=== PATIENT | female | born 1990 | race Caucasian/White ===

== ENCOUNTER → 2016-08-25 | Outpatient (CLI) | payer OTHER | LOC: MOB LAB 13:50 | PROVIDERS: ATTEND Student in an Organized Health Care Education/Training Program | DX: J02.9 Acute pharyngitis, unspecified (principal) | CPT/HCPCS: 87070 ==

== ENCOUNTER → 2017-02-02 | Outpatient (CLI) | payer OTHER ==
[2017-02-02 14:48] LABS: BASOPHILS # (AUTO) 0.07 10*3/UL; BASOPHILS % (AUTO) 0.9 % (0-1); EOSINOPHILS # (AUTO) 0.11 10*3/UL; EOSINOPHILS % (AUTO) 1.3 % (0-8); HEMATOCRIT 36.2 % (37.0-47.0); HEMOGLOBIN 12.7 g/dL (12.0-16.0); LYMPHOCYTES # (AUTO) 1.98 10*3/uL; MEAN CORPUSCULAR HEMOGLOBIN 31.9 PG (27-31); MEAN CORPUSCULAR HGB CONC 35.1 g/dL (33-37); MEAN PLATELET VOLUME 10.5 FL (7.4-12.2); MONOCYTES # (AUTO) 0.71 10*3/UL (0.3-0.8); MONOCYTES % (AUTO) 8.7 % (5-15); NEUTROPHILS # (AUTO) 5.28 10*3/UL; NEUTROPHILS % (AUTO) 64.7 % (50-80); RED BLOOD COUNT 3.98 10^6/uL (4.20-5.40)
[2017-02-02 14:54] LABS: PLATELET MORPHOLOGY COMMENT NORMAL MORPHOLOGY (NORM); RBC MORPHOLOGY COMMENT NORMAL MORPHOLOGY (NORM); WBC MORPHOLOGY COMMENT NORMAL MORPHOLOGY (NORM)
[2017-02-02 15:36] LABS: HIV ANTIBODY NEGATIVE (N); HIV-1 P24 ANTIGEN NEGATIVE (N)
== END ==
LOC: MOB LAB 13:42
PROVIDERS: ATTEND Student in an Organized Health Care Education/Training Program
DX: Z36 Encounter for antenatal screening of mother (principal)
CPT/HCPCS: 36415; 80081; 86900; 86901; 87088

== ENCOUNTER 2017-08-31 13:35 | Inpatient (IN) ==
[2017-08-31] MEDS ORDERED: NORMAL SALINE 10 ML SYRINGE FLUSH IVP PRN ×2 (13:56→17:38)
[2017-08-31 14:16] LABS: Hematocrit [HCT] 33.5 % (37.0-47.0); Hemoglobin [HGB] 11.4 g/dL (12.0-16.0); MEAN CORPUSCULAR HEMOGLOBIN 30.8 PG (27-31); MEAN CORPUSCULAR VOLUME 90.5 FL (81-99); MEAN PLATELET VOLUME 10.6 FL (7.4-12.2); RED BLOOD COUNT 3.7 10^6/uL (4.20-5.40)
[2017-08-31 14:28] LABS: BLOOD UREA NITROGEN 8 mg/dL (7-22); BUN/CREATININE RATIO 13.33 (6-20); SERUM ALBUMIN 3.7 g/dL (3.5-4.8); Uric Acid 3.7 mg/dl (2.5-6.2)
[2017-08-31] MEDS ORDERED: Lactated Ringers 1,000 ML PRIMARY IV ONE (14:35)
[2017-08-31] MEDS ORDERED: Amoxicill/Clav 875/125mg Tab 1 TAB TAB PO SCH (17:30)
[2017-08-31] MEDS ORDERED: TERBUTALINE SULFATE 1 MG/1 ML SDV SUBCUT PRN (17:38)
[2017-08-31] MEDS ORDERED: BUTORPHANOL TARTRATE 2 MG/1 ML VIAL IVP PRN (17:38)
[2017-08-31] MEDS ORDERED: METHYLERGONOVINE MALEATE 0.2 MG/1 ML VIAL IM PRN (17:38)
[2017-08-31] MEDS ORDERED: Metoclopramide Inj 10 MG/2 ML VIAL IV PRN (17:38)
[2017-08-31] MEDS ORDERED: LIDOCAINE W/ SODIUM BICARB 0.5 ML SYR SUBD PRN (17:38)
[2017-08-31] MEDS ORDERED: ONDANSETRON 4 MG/2 ML VIAL IVP PRN (17:38)
[2017-08-31] MEDS ORDERED: Phenylephrine Inj 50 MCG in Normal Saline Flush 0.5 ML IVP PRN (17:38)
[2017-08-31] MEDS ORDERED: CALCIUM CARBONATE 500 MG (TUMS) CHEWABLE TABLET PO PRN (17:38)
[2017-08-31] MEDS ORDERED: Lidocaine 1% 10 MG/ML - 20 ML VIAL SUBCUT PRN (17:38)
[2017-08-31] MEDS ORDERED: Carboprost Inj 250 MCG/ML AMP IM PRN (17:38)
[2017-08-31] MEDS ORDERED: diphenhydrAMINE 50 MG/1 ML VIAL IVP PRN (17:38)
[2017-08-31] MEDS ORDERED: ePHEDrine Inj 5 MG in Normal Saline Flush 1 ML IVP PRN (17:38)
[2017-08-31] MEDS ORDERED: LIDOCAINE HCL 2 % 10 ML JELLY URO-JECT TOPICAL PRN (17:38)
[2017-08-31] MEDS ORDERED: Naloxone Inj 0.01 MG in Normal Saline Flush 1 ML IVP PRN (17:38)
[2017-08-31] MEDS ORDERED: MISOPROSTOL 200 MCG TABLET RECTAL PRN (17:38)
[2017-08-31] MEDS ORDERED: fentaNYL Inj 100 MCG/2 ML VIAL IV PRN (17:38)
[2017-08-31] MEDS ORDERED: NALOXONE 0.4 MG/1 ML VIAL IVP PRN (17:38)
[2017-08-31] MEDS ORDERED: OXYTOCIN 10 UNIT/1 ML IM PRN (17:38)
[2017-08-31] MEDS ORDERED: Oxytocin 20 Units + LR 20 UNIT/1,000 ML BAG IV SCH (17:38)
[2017-08-31] MEDS ORDERED: CITRIC ACID/SODIUM CITRATE 30 ML CUP PO PRN (17:38)
[2017-08-31] MEDS ORDERED: CefOXitin Inj 2 GM in Sodium Chloride 0.9% 100 ML IV PRN (17:38)
[2017-08-31] MEDS ORDERED: Famotidine Inj 20 MG in Normal Saline Flush 10 ML IVP PRN ×4 (17:38)
--- NOTE | 2017-08-31 17:41 | OB.PROGRES ---
Interval History: 27 yo at 38 0/7 weeks gestation by LMP and 8 week u/s presented to clinic today for a routine visit. She reported 3 days of cough, muscle aches, subjective fever, sinus congestion. She has noted increased BPs at home. In the clinic her BP was 140/80, Influenza negative. She was sent to L&D for further workup. Workup notable for urine pr:cr 1.5, plts, LFTs, h/h, cr otherwise unremarkable. She denies TOSCANO, scotomata, RUQ pain, increased swelling (although has had LE edema for some time now). unremarkable. Labs notable for Rubella nonimmune, GBS negative. She has had a cold off and on x1 month, just completed a course of amoxicillin about a week ago. Received TDaP 06/22/17. Received Flu shot 04/06/17. Quad screen did not show increased risk of trisomy 21, 18 or neural tube defect. Normal anatomy scan, posterior placenta. Growth u/s 08/24/17 (last week) showed EFW 37%ile, normal cord dopplers, posterior placenta grade 3. Gender is a surprise. PANTOMIMIST hx - was not on contraception at conception. No h/o STIs. H/o HPV positive pap 08/17, 08/18 pap negative, HR HPV negative PMH - vericose veins DVT at age 15, provoked, negative coag panel at that time Seasonal allergies SI joint pain Chicken pox as a kid PSH - wisdom teeth extraction FH - T2DM, anemia, CAD, colon cancer Objective - Cervical Exam Cervical Exam: /-3 posterior firm per RJ Hu[facility] [place]: none now but was marian upon arrival up to 3/10 mins Heart Rate: baseline 150, mod dylon, +accels, -decels. (Tachycardic initially upon arrival to L&D but better after IVF) Heart Rate Interpretation Category: Category I - Labs CBC and BMP: 08/31/17 14:11 08/31/17 14:11 Additional Lab Results: 08/31/17 08/31/17 08/31/17 14:11 14:11 14:11 WBC 10.44 Hgb 11.4 L Hct 33.5 L Plt Count 249 Sodium 135 Potassium 3.8 Chloride 103 Carbon Dioxide 20 L BUN 8 Creatinine 0.6 BUN/Creatinine Ratio 13.33 Glucose 95 Uric Acid 3.7 Calcium 9.3 Total Bilirubin 0.4 AST 25 ALT 47 Alkaline Phosphatase 116 Lactate Dehydrogenase 318 Ur Random Creatinine 9.5 U Random Total Protein 15 H - Vital Signs Last Taken Vital Signs: Vital Signs - Last Taken Temperature 97.5 F 08/31/17 13:55 Pulse Rate 105 H 08/31/17 13:55 Respiratory Rate 18 08/31/17 13:55 Blood Pressure 137/82 08/31/17 15:15 Pulse Ox 98 08/31/17 13:55 Assessment and Plan - Patient Problems (1) Preeclampsia Current Visit: Yes Status: Acute Code(s): O14.90 - Unspecified pre-eclampsia , unspecified trimester Qualifiers: Trimester: third trimester Qualified Code(s): O14.93 - Unspecified pre- eclampsia, third trimester (2) Sinusitis Current Visit: Yes Status: Acute Code(s): J32.9 - Chronic sinusitis, unspecified Qualifiers: Sinusitis location: frontal Chronicity: acute Recurrence: recurrent Qualified Code(s): J01.11 - Acute recurrent frontal sinusitis (3) Rubella non-immune status, antepartum Current Visit: Yes Status: Acute Code(s): O99.89 - Other specified diseases and conditions complicating , childbirth and the puerperium; Z28.3 - Underimmunization status Support Text: 27 yo at 38 0/7 weeks gestation by LMP, first tri u/s. Patient with several BPs >140/90 now but not to severe range. Not technically 4 hours apart yet. Proteinuria by a random urine pr:cr 1.5. Labs otherwise reassuring. Long discussion with patient Will plan to start induction once we have 2 BPs >140/90 documented at least 4 hours apart. If she continues to not contract will start with cytotec 25mcg pv. If she is marian will do low dose pitocin. Will start Augmentin 875/125 po bid for sinusitis GBS negative Will likely want an epidural
[2017-08-31 18:02] LABS: BILIRUBIN,URINE NEGATIVE (NEG); CLARITY,URINE CLEAR (CLEAR); COLOR,URINE YELLOW (Y); GLUCOSE, URINE (UA) NEGATIVE (NEG); OCCULT BLOOD,URINE NEGATIVE (NEG); PROTEIN,URINE NEGATIVE (NEG); URINE SAMPLE TYPE CLEAN CATCH URINE; UROBILINOGEN,URINE 0.2 EU/dL (0.2)
[2017-08-31] MEDS: Zolpidem Tab 5 MG TAB PO PRN (21:43)
[2017-08-31] MEDS: Amoxicill/Clav 875/125mg Tab 1 TAB TAB PO SCH (21:43)
[2017-08-31] MEDS: GUAIFENESIN 600 MG TABLET PO PRN (21:44)
[2017-09-01] MEDS: Lactated Ringers-OB Dept 1,000 ML PRIMARY IV SCH ×3 (04:39→22:43)
[2017-09-01 05:44] LABS: Hematocrit [HCT] 32.8 % (37.0-47.0); Hemoglobin [HGB] 11.1 g/dL (12.0-16.0); MEAN CORPUSCULAR HEMOGLOBIN 30.8 PG (27-31); MEAN CORPUSCULAR HGB CONC 33.8 g/dL (33-37); MEAN CORPUSCULAR VOLUME 91.1 FL (81-99); MEAN PLATELET VOLUME 10.9 FL (7.4-12.2); RED BLOOD COUNT 3.6 10^6/uL (4.20-5.40)
[2017-09-01 05:57] LABS: BLOOD UREA NITROGEN 6 mg/dL (7-22); SERUM ALBUMIN 3.4 g/dL (3.5-4.8); Uric Acid 3.8 mg/dl (2.5-6.2)
--- NOTE | 2017-09-01 09:10 | OB.PROGRES ---
Objective - Labs CBC and BMP: 09/01/17 05:17 09/01/17 05:17 - Vital Signs Last Taken Vital Signs: Vital Signs - Last Taken Temperature 97.9 F 09/01/17 04:36 Pulse Rate 101 H 09/01/17 08:00 Respiratory Rate 18 09/01/17 08:00 Blood Pressure 118/81 09/01/17 08:00 Pulse Ox 97 09/01/17 07:00 Assessment and Plan - Patient Problems (1) Preeclampsia Current Visit: Yes Status: Acute Code(s): O14.90 - Unspecified pre-eclampsia , unspecified trimester Qualifiers: Trimester: third trimester Qualified Code(s): O14.93 - Unspecified pre- eclampsia, third trimester (2) Sinusitis Current Visit: Yes Status: Acute Code(s): J32.9 - Chronic sinusitis, unspecified Qualifiers: Sinusitis location: frontal Chronicity: acute Recurrence: recurrent Qualified Code(s): J01.11 - Acute recurrent frontal sinusitis (3) Rubella non-immune status, antepartum Current Visit: Yes Status: Acute Code(s): O99.89 - Other specified diseases and conditions complicating , childbirth and the puerperium; Z28.3 - Underimmunization status
--- NOTE | 2017-09-01 09:16 | OB.PROGRES ---
Interval History: Induction was not started last night 2/2 a busy unit and stable pressures. BP this morning thoug 135/90 so will proceed. Patient states she feels better this morning, got some good rest with ambien. Has sinus tenderness but denies TOSCANO, scotomota, RUQ pain. Objective - Cervical Exam [place]: none Heart Rate: baseline 145, mod dylon, +accels, -decels Heart Rate Interpretation Category: Category I - Labs CBC and BMP: 09/01/17 05:17 09/01/17 05:17 - Vital Signs Last Taken Vital Signs: Vital Signs - Last Taken Temperature 97.9 F 09/01/17 04:36 Pulse Rate 101 H 09/01/17 08:00 Respiratory Rate 18 09/01/17 08:00 Blood Pressure 118/81 09/01/17 08:00 Pulse Ox 97 09/01/17 07:00 - Additional Details Additional Details: Reflexes 3+, no clonus Assessment and Plan - Patient Problems (1) Preeclampsia Current Visit: Yes Status: Acute Code(s): O14.90 - Unspecified pre-eclampsia , unspecified trimester Qualifiers: Trimester: third trimester Qualified Code(s): O14.93 - Unspecified pre- eclampsia, third trimester (2) Sinusitis Current Visit: Yes Status: Acute Code(s): J32.9 - Chronic sinusitis, unspecified Qualifiers: Sinusitis location: frontal Chronicity: acute Recurrence: recurrent Qualified Code(s): J01.11 - Acute recurrent frontal sinusitis (3) Rubella non-immune status, antepartum Current Visit: Yes Status: Acute Code(s): O99.89 - Other specified diseases and conditions complicating , childbirth and the puerperium; Z28.3 - Underimmunization status Support Text: 27 yo at 38 1/7 weeks gestation by LMP, first tri u/s. Patient with several BPs >140/90 at least 4 hours apart, but not to severe range. Proteinuria by a random urine pr:cr 1.5. Labs otherwise reassuring still this morning. Induction was delayed last night secondary to a busy unit and patient' s BPs were <140/90 overnight. Proceed with cytotec this morning 25 mgc pv q4h x3 Augmentin 875/125 po bid for sinusitis GBS negative Will likely want an epidural
[2017-09-01] MEDS: Amoxicill/Clav 875/125mg Tab 1 TAB TAB PO SCH ×2 (09:30→21:11)
[2017-09-01] MEDS: Misoprostol Tab 100 MCG TAB VAGINAL SCH ×3 (09:37→22:23)
[2017-09-01] MEDS: GUAIFENESIN 600 MG TABLET PO PRN (21:11)
[2017-09-01] MEDS: Zolpidem Tab 5 MG TAB PO PRN (21:11)
[2017-09-01] MEDS ORDERED: Zolpidem Tab 5 MG TAB PO PRN (22:23)
[2017-09-01] MEDS ORDERED: Oxytocin 20 Units + LR 20 UNIT/1,000 ML BAG IV SCH (22:30)
[2017-09-02] MEDS: Misoprostol Tab 100 MCG TAB VAGINAL SCH ×2 (02:48→08:54)
[2017-09-02 08:01] LABS: Hematocrit [HCT] 36.9 % (37.0-47.0); Hemoglobin [HGB] 12.6 g/dL (12.0-16.0); MEAN CORPUSCULAR HEMOGLOBIN 31.3 PG (27-31); MEAN CORPUSCULAR HGB CONC 34.1 g/dL (33-37); MEAN CORPUSCULAR VOLUME 91.8 FL (81-99); MEAN PLATELET VOLUME 10.7 FL (7.4-12.2); RED BLOOD COUNT 4.02 10^6/uL (4.20-5.40)
[2017-09-02 08:12] LABS: BLOOD UREA NITROGEN 6 mg/dL (7-22)
[2017-09-02] MEDS: Amoxicill/Clav 875/125mg Tab 1 TAB TAB PO SCH ×2 (08:57→22:19)
--- NOTE | 2017-09-02 10:51 | OB.PROGRES ---
Date and Time of Service: 09/02/17, 10:00 Interval History: 27 yo at 38 2/7 weeks gestation admitted for IOL for preeclampsia without severe features. She received 2 doses of cytotec pv yesterday, then was marian too frequently for another dose. She was on 2mU of pit through the night. SROM with clear fluid around 0500. Patient states she is feeling the contractions stronger 5/10, pain. Congestion is getting better. She slept better again last night with ambien. Objective - Cervical Exam Cervical Exam: 2/80/-1, bishop9 [place]: q4min Heart Rate: baseline 155, mod dylon, +accels, -decels Heart Rate Interpretation Category: Category I - Labs CBC and BMP: 09/02/17 07:55 09/02/17 07:55 - Vital Signs Last Taken Vital Signs: Vital Signs - Last Taken Temperature 98 F 09/02/17 08:35 Pulse Rate 86 09/02/17 08:35 Respiratory Rate 18 09/02/17 08:35 Blood Pressure 123/82 09/02/17 08:35 Pulse Ox 98 09/02/17 08:35 Assessment and Plan - Patient Problems (1) Preeclampsia Current Visit: Yes Status: Acute Code(s): O14.90 - Unspecified pre-eclampsia , unspecified trimester Qualifiers: Trimester: third trimester Qualified Code(s): O14.93 - Unspecified pre- eclampsia, third trimester (2) Sinusitis Current Visit: Yes Status: Acute Code(s): J32.9 - Chronic sinusitis, unspecified Qualifiers: Sinusitis location: frontal Chronicity: acute Recurrence: recurrent Qualified Code(s): J01.11 - Acute recurrent frontal sinusitis (3) Rubella non-immune status, antepartum Current Visit: Yes Status: Acute Code(s): O99.89 - Other specified diseases and conditions complicating , childbirth and the puerperium; Z28.3 - Underimmunization status Support Text: 27 yo at 38 2/7 weeks gestation by LMP, first tri u/s. Admitted for IOL for preeclampsia without severe features. SROM at 0500, clear fluid Increase pitocin as tolerated, will place IUPC if needed Augmentin 875/125 po bid for sinusitis GBS negative Will likely want an epidural Rubella nonimmune so will need MMR
[2017-09-02] MEDS ORDERED: Fent/Bupiv 2mcg/0.0625% Epid 250 ML ONE (14:12)
--- NOTE | 2017-09-02 14:29 | CRNA.PROCE ---
Central Neuraxis Block Placemt - - Safety Measures: Time Out Taken, Site Verified - - Type of Block: Epidural Reason for Block: Analgesia Moniters Used During Block: SPO2, NIBP Positioning: Sitting Skin Prep Used: Betadine Draped: Yes Skin Infiltration - Enter Amount Used in Comment Field: 1% Xylocaine (mL): Yes ( wheal) Introducer User: 18 Gauge Hustead (STEPHANIE to saline first pass at L3-4) Local Anesthetic - Enter Amount Used in Comment Field: 1.5 % Xylocaine with Epinephrine 1:200,000 (mL): Yes (5ml test dose negative) Number of Centimeters Catheter Threaded: 4 Bioclusive Dressing Applied: Yes Anesthesia Time - Other Weight: 93.894 kg Height: 5 ft 6 in Body Mass Index (BMI): 33.4
[2017-09-02] MEDS ORDERED: fentaNYL 2 MCG/BUPIVACAINE 0.0625%/NS 0.9% 250 ML BAG EPIDURAL SCH (14:30)
--- NOTE | 2017-09-02 14:31 | CRNA.PROGR ---
Anesthesia Time - - Start date: 09/02/17 - Procedure/Recovery Time Anesthesia : Time In: 13:55 Anesthesia : Time Out: 20:30 - Other Weight: 93.894 kg Height: 5 ft 6 in Body Mass Index (BMI): 33.4 Physical Status: P2 Anesthesia Type: Epidural Obstetrics: Planned vaginal delivery w/ neuraxial labor anesthesia/analog
[2017-09-02] MEDS: Lactated Ringers-OB Dept 1,000 ML PRIMARY IV SCH ×2 (15:26→15:31)
[2017-09-02] MEDS: Nalbuphine Inj 20 MG/ML Ampule IVP PRN ×2 (17:20→17:33)
--- NOTE | 2017-09-02 21:17 | OB.DEL.SUM ---
Delivery Note Delivery Summary: 27 yo G1 now P1 was admitted 2 nights ago for IOL for preeclampsia without severe features at 38 0/7 weeks gestation. Induction was delayed the first night secondary to a busy unit. She received 2 doses of 25 mcg cytotec pv yesterday, was then marian too frequently for a 3rd dose. She received low dose pitocin through the night last night and ruptured around 0500 this morning , clear fluid. Her pitocin was increased through the day. She received an epidural for anesthesia earlier this afternoon. She was complete and started pushing at about 1915. At 2006 she delivered via normal vaginal delivery a TAGA female infant in OA position over an intact perineum with epidural anesthesia. No nuchal cord was noted. Her head, shoulders, and body were delivered, notable for a compound anterior hand. was placed on moms abdomen. Cord clamping was delayed approx. 30-45 sec. Cord was doubly clamped and cut by the father. Cord gases and cord blood were collected. Her placenta delivered spontaneously, intact, with 3-vessel cord at 2010. She did have a 2nd degree perineal laceration that was repaired with 3-0 vicryl rapide in standard fashion. EBL 350 cc. Mom and baby tolerated delivery well. Apgars 8, 9. Cord gases: pH 7.30, pCO2 40.7, HCO3 20.2, BE -6 - Patient Problems (1) Preeclampsia Current Visit: Yes Status: Acute Code(s): O14.90 - Unspecified pre-eclampsia , unspecified trimester Qualifiers: Trimester: third trimester Qualified Code(s): O14.93 - Unspecified pre- eclampsia, third trimester (2) Sinusitis Current Visit: Yes Status: Acute Code(s): J32.9 - Chronic sinusitis, unspecified Qualifiers: Sinusitis location: frontal Chronicity: acute Recurrence: recurrent Qualified Code(s): J01.11 - Acute recurrent frontal sinusitis (3) Rubella non-immune status, antepartum Current Visit: Yes Status: Acute Code(s): O99.89 - Other specified diseases and conditions complicating , childbirth and the puerperium; Z28.3 - Underimmunization status (4) Vaginal delivery Current Visit: Yes Status: Acute Code(s): O80 - Encounter for full-term uncomplicated delivery
[2017-09-02] MEDS ORDERED: HYDROcodone-APAP 5 MG -325 MG TABLET PO PRN (21:56)
[2017-09-02] MEDS ORDERED: diphenhydrAMINE 50 MG/1 ML VIAL IVP PRN (21:56)
[2017-09-02] MEDS ORDERED: Ondansetron ODT Tab 4 MG TAB PO PRN (21:56)
[2017-09-02] MEDS ORDERED: GLYCERIN/WITCH HAZEL 1 BOX TOPICAL PRN (21:56)
[2017-09-02] MEDS ORDERED: NORMAL SALINE 10 ML SYRINGE FLUSH IVP PRN (21:56)
[2017-09-02] MEDS ORDERED: Nalbuphine Inj 20 MG/ML Ampule IVP PRN (21:56)
[2017-09-02] MEDS ORDERED: LIDOCAINE HCL 2 % 10 ML JELLY URO-JECT TOPICAL PRN (21:56)
[2017-09-02] MEDS ORDERED: MMR VACCINE 12500 UNIT/0.5 ML SUBCUT ONE (21:56)
[2017-09-02] MEDS ORDERED: IBUPROFEN 800 MG TABLET PO PRN (21:56)
[2017-09-02] MEDS ORDERED: BENZOCAINE/MENTHOL SPRAY 56 GM BOTTLE TOPICAL PRN (21:56)
[2017-09-02] MEDS ORDERED: ONDANSETRON 4 MG/2 ML VIAL IVP PRN (21:56)
[2017-09-02] MEDS ORDERED: ACETAMINOPHEN 325 MG TABLET PO PRN (21:56)
[2017-09-02] MEDS ORDERED: LANOLIN HPA 40 GM TUBE TOPICAL PRN (21:56)
[2017-09-02] MEDS ORDERED: CALCIUM CARBONATE 500 MG (TUMS) CHEWABLE TABLET PO PRN (21:56)
[2017-09-02] MEDS ORDERED: diphenhydrAMINE 25 MG CAPSULE PO PRN (21:56)
[2017-09-02] MEDS ORDERED: Oxytocin 20 Units + LR 20 UNIT/1,000 ML BAG IV SCH (21:56)
[2017-09-02] MEDS: GUAIFENESIN 600 MG TABLET PO PRN (22:19)
[2017-09-03] MEDS: Lactated Ringers-OB Dept 1,000 ML PRIMARY IV SCH (05:57)
[2017-09-03] MEDS: Amoxicill/Clav 875/125mg Tab 1 TAB TAB PO SCH ×3 (05:58→21:43)
[2017-09-03 07:31] LABS: Hematocrit [HCT] 34.8 % (37.0-47.0); MEAN CORPUSCULAR HEMOGLOBIN 31.2 PG (27-31); MEAN CORPUSCULAR HGB CONC 34.5 g/dL (33-37); MEAN CORPUSCULAR VOLUME 90.4 FL (81-99); MEAN PLATELET VOLUME 10.8 FL (7.4-12.2); RED BLOOD COUNT 3.85 10^6/uL (4.20-5.40)
[2017-09-03] MEDS: DOCUSATE 100 MG CAPSULE PO SCH ×2 (09:36→21:43)
[2017-09-03] MEDS: Prenatal Multivitamin Tab 1 TAB TAB PO SCH (09:36)
--- NOTE | 2017-09-03 14:18 | CRNA.PROGR ---
Anesthesia Note - Progress Notes Anesthesia Progress Note: Up in chair visiting with family. Epidural was DC'd after delivery by OB RN, see note. She has no questions or concerns regarding her anesthetic course for labor analgesia Vital Signs (24 hrs) Temp Pulse Pulse Pulse Resp Resp BP 09/03/17 09:40 97.6 F 89 18 09/03/17 03:19 97.8 F 75 14 09/03/17 00:10 97.6 F 87 16 09/02/17 21:00 82 16 122/84 09/02/17 20:45 97.7 F 82 16 124/76 09/02/17 20:31 82 16 120/74 09/02/17 20:17 97.7 F 82 16 139/85 09/02/17 19:00 09/02/17 18:45 96 09/02/17 18:30 76 09/02/17 18:28 16 09/02/17 17:00 76 16 09/02/17 16:20 16 09/02/17 16:00 77 09/02/17 15:30 75 18 09/02/17 15:00 84 14 09/02/17 14:30 97.6 F 81 16 09/02/17 14:20 16 BP Pulse Ox 09/03/17 09:40 129/88 96 09/03/17 03:19 108/60 94 09/03/17 00:10 131/80 95 09/02/17 21:00 94 09/02/17 20:45 98 09/02/17 20:31 99 09/02/17 20:17 99 09/02/17 19:00 129/78 09/02/17 18:45 133/74 99 09/02/17 18:30 127/78 100 09/02/17 18:28 09/02/17 17:00 113/72 100 09/02/17 16:20 09/02/17 16:00 121/76 09/02/17 15:30 109/61 93 09/02/17 15:00 113/66 100 09/02/17 14:30 125/63 99 09/02/17 14:20
--- NOTE | 2017-09-03 15:43 | OB.PROGRES ---
Subjective Post Op Day: 1 Pain Management: PO Tompkins Catheter: No Flatus: Yes Diet: Regular Feeding Method: Exculsively Ambulating: Yes Concerns / Additional Information: Infant is not latching well, not showing a lot of interest. Worked with this morning. Swelling much improved. Feeling better. Objective - General General Appearance: POSITIVE: No Acute Distress - Cardiovacular Cardiovascular Exam: POSITIVE: RRR Edema: +1 Pedal Edema - Respiratory Respiratory Exam: POSITIVE: Clear to Auscultation - Bilaterally, Breathing Non Labored - Abdomen Bowel Sounds: Present - Fundus/Lochia/Perineum Uterus Consistency: Firm Uterus Position: POSITIVE: Below Umbilicus Lochia Color: Rubra/Red Assesstment / Plan (1) Preeclampsia Current Visit: Yes Status: Acute Qualifiers: Trimester: third trimester Qualified Code(s): O14.93 - Unspecified pre- eclampsia, third trimester (2) Sinusitis Current Visit: Yes Status: Acute Qualifiers: Sinusitis location: frontal Chronicity: acute Recurrence: recurrent Qualified Code(s): J01.11 - Acute recurrent frontal sinusitis (3) Rubella non-immune status, antepartum Current Visit: Yes Status: Acute (4) Vaginal delivery Current Visit: Yes Status: Acute Support Text: 27 yo G1 now P1, PPD 1 -Pain well controlled -Breast feeding, needing some assistance -BPs have been below 140/90 will continue to monitor closely -Needs MMR -Likely mirena for pp contraception -Anticipate d/c to home in am
[2017-09-03] MEDS ORDERED: Lidocaine Inj 1% 20 ML ONE (16:53)
[2017-09-03] MEDS: GUAIFENESIN 600 MG TABLET PO PRN (21:43)
[2017-09-04 04:10] VITALS: RESP 16
[2017-09-04 05:14] LABS: Hematocrit [HCT] 35.8 % (37.0-47.0); Hemoglobin [HGB] 12.1 g/dL (12.0-16.0); MEAN CORPUSCULAR HEMOGLOBIN 30.7 PG (27-31); MEAN CORPUSCULAR HGB CONC 33.8 g/dL (33-37); MEAN CORPUSCULAR VOLUME 90.9 FL (81-99); MEAN PLATELET VOLUME 10.8 FL (7.4-12.2); RED BLOOD COUNT 3.94 10^6/uL (4.20-5.40)
[2017-09-04 05:26] LABS: BLOOD UREA NITROGEN 10 mg/dL (7-22); BUN/CREATININE RATIO 14.28 (6-20); SERUM ALBUMIN 3.5 g/dL (3.5-4.8); Uric Acid 4.4 mg/dl (2.5-6.2)
--- NOTE | 2017-09-04 08:14 | DCSUMMARY ---
Hospitalization Summary Admit Date: 08/31/17 Discharge Date: 09/04/17 Primary Diagnosis:: Vaginal delivery Secondary Diagnosis:: Preeclampsia without severe features Sinusitis Delivery Type: Vaginal Hospital Course: 27 yo G1 now P1 who was admitted Sunday08/31/17 for preeclampsia by repeat BPs > 140/90 and proteinuria by random urine pr:cr 1.5. This was also in the setting of sinusitis. Her induction was started 09/01/17, she received 2 doses of cytotec pv but then was marian too frequently for a third dose. She was given low dose pitocin through the night. She had a spontaneous rupture of membranes early the morning of 09/02. Her pitocin was increased, she progressed to complete and delivered the evening of 09/02/17 a healthy, terma, AGA female . She had a 2nd degree perineal laceration that was repaired in routine fashion. Her BPs have remained <140/90 since delivery. She has not had a TOSCANO, vision changes, RUQ pain. Swelling has improved significantly. She was placed on augmentin for her sinusitis, and this too has improved. / Postop Complications: none apparent Complications: none apparent Exam - Vitals Vital Signs: Vital Signs Temperature 97.8 F Temperature Source Oral Pulse Rate [Apical] 75 Pulse Rate [Pulse Oximeter] 65 Pulse Rate 89 Respiratory Rate [Lower 16 Abdomen] Respiratory Rate 16 Blood Pressure [Right Arm] 126/87 Blood Pressure 122/84 Pulse Ox 98 Oxygen Delivery Method Room Air Height 5 ft 6 in Weight 207 lb - General General Appearance: No Acute Distress, Cooperative - Head Head Exam: Normal Inspection - Eye Eye Exam: POSITIVE: Normal Appearance - Neck Neck Exam: Normal Inspection - Respiratory Respiratory Exam: POSITIVE: Clear to Auscultation - Bilaterally, Breathing Non Labored. NEGATIVE: Rales, Rhonci, Wheezes - Cardiovascular Cardiovascular Exam: POSITIVE: RRR - GI/Abdominal GI/Abdominal Exam: POSITIVE: Normal Bowel Sounds Additional GI/Abdominal Exam Details: uterus firm below umbilicus - Extremities Extremities Exam: POSITIVE: No Edema Present, Negative Christiano's sign. NEGATIVE: Calf Tenderness - Neurological Neurological Exam: POSITIVE: Alert, Oriented x 3 - Psychiatric Psychiatric Exam: POSITIVE: Normal Affect, Normal Mood Data Peritnent Studies: 08/31/17 09/04/17 09/04/17 14:11 04:51 04:51 WBC 8.36 Hgb 12.1 Hct 35.8 L Plt Count 287 Sodium 137 Potassium 3.8 Chloride 104 Carbon Dioxide 20 L Anion Gap 13 BUN 10 Creatinine 0.7 Estimated GFR > 60 BUN/Creatinine Ratio 14.28 Glucose 74 L Calculated Osmolality 281.0 Uric Acid 4.4 Calcium 8.7 Total Bilirubin 0.2 L D AST 33 ALT 29 Alkaline Phosphatase 107 Lactate Dehydrogenase 546 Total Protein 6.6 Albumin 3.5 Ur Random Creatinine 9.5 U Random Total Protein 15 H Patient Problems - Patient Problem List (1) Preeclampsia Current Visit: Yes Status: Acute Code(s): O14.90 - Unspecified pre-eclampsia , unspecified trimester Qualifiers: Trimester: third trimester Qualified Code(s): O14.93 - Unspecified pre- eclampsia, third trimester Category: Medical (2) Sinusitis Current Visit: Yes Status: Acute Code(s): J32.9 - Chronic sinusitis, unspecified Qualifiers: Sinusitis location: frontal Chronicity: acute Recurrence: recurrent Qualified Code(s): J01.11 - Acute recurrent frontal sinusitis Category: Medical (3) Rubella non-immune status, antepartum Current Visit: Yes Status: Acute Code(s): O99.89 - Other specified diseases and conditions complicating , childbirth and the puerperium; Z28.3 - Underimmunization status Category: Medical (4) Vaginal delivery Current Visit: Yes Status: Acute Code(s): O80 - Encounter for full-term uncomplicated delivery Support Text: 27 yo G1 now P1 PPD 2 -, working with strategic sourcing consultant, doing better today -MMR prior to d/c -Continue augmentin for sinusitis, complete 7 day course -Continue ibuprofen, colace, PNV -F/u in 8 weeks, will likely want a mirena IUD for pp contraception -BP check in 2 days Category: Medical
[2017-09-04] MEDS ORDERED: MMR VACCINE 12500 UNIT/0.5 ML SUBCUT ONE (08:33)
[2017-09-04] MEDS: Amoxicill/Clav 875/125mg Tab 1 TAB TAB PO SCH (08:50)
[2017-09-04] MEDS: Prenatal Multivitamin Tab 1 TAB TAB PO SCH (08:51)
[2017-09-04] MEDS: DOCUSATE 100 MG CAPSULE PO SCH (08:51)
[2017-09-04 10:24] VITALS: BP 135/85; TEMP 98; O2SAT 100
== END 2017-09-04 10:24 | disposition home or self-care (01) | DRG 775 ==
LOC: OBOP 13:35 → OBIP 17:18
PROVIDERS: ADMIT Student in an Organized Health Care Education/Training Program; ATTEND Student in an Organized Health Care Education/Training Program

== ENCOUNTER 2019-06-26 07:04 | Inpatient (IN) ==
[2019-06-26] MEDS ORDERED: Nalbuphine Inj 20 MG/ML Ampule IVP PRN (07:24)
[2019-06-26] MEDS ORDERED: NALOXONE 0.4 MG/1 ML VIAL IVP PRN (07:24)
[2019-06-26] MEDS ORDERED: METHYLERGONOVINE MALEATE 0.2 MG/1 ML VIAL IM PRN (07:24)
[2019-06-26] MEDS ORDERED: OXYTOCIN 10 UNIT/1 ML IM PRN (07:24)
[2019-06-26] MEDS ORDERED: LIDOCAINE HCL 2 % 10 ML JELLY URO-JECT TOPICAL PRN (07:24)
[2019-06-26] MEDS ORDERED: BUTORPHANOL TARTRATE 2 MG/1 ML VIAL IVP PRN (07:24)
[2019-06-26] MEDS ORDERED: TERBUTALINE SULFATE 1 MG/1 ML SDV SUBCUT PRN (07:24)
[2019-06-26] MEDS ORDERED: CALCIUM CARBONATE 500 MG (TUMS) CHEWABLE TABLET PO PRN (07:24)
[2019-06-26] MEDS ORDERED: MISOPROSTOL 200 MCG TABLET RECTAL PRN (07:24)
[2019-06-26] MEDS ORDERED: Lidocaine 1% 10 MG/ML - 20 ML VIAL SUBCUT PRN (07:24)
[2019-06-26] MEDS ORDERED: Metoclopramide Inj 10 MG/2 ML VIAL IV PRN (07:24)
[2019-06-26] MEDS ORDERED: Phenylephrine Inj 50 MCG in Sodium Chloride 0.9% vial 0.5 ML IVP PRN (07:24)
[2019-06-26] MEDS ORDERED: Carboprost Inj 250 MCG/ML AMP IM PRN (07:24)
[2019-06-26] MEDS ORDERED: CefOXitin Inj 2 GM in Sodium Chloride 0.9% 100 ML IV PRN (07:24)
[2019-06-26] MEDS ORDERED: LIDOCAINE W/ SODIUM BICARB 0.5 ML SYR SUBD PRN (07:24)
[2019-06-26] MEDS ORDERED: FAMOTIDINE 20 MG/2 ML VIAL IVP PRN ×2 (07:24)
[2019-06-26] MEDS ORDERED: CITRIC ACID/SODIUM CITRATE 30 ML CUP PO PRN (07:24)
[2019-06-26] MEDS ORDERED: ONDANSETRON 4 MG/2 ML VIAL IVP PRN (07:24)
[2019-06-26] MEDS ORDERED: Naloxone Inj 0.01 MG in Sodium Chloride 0.9% vial 1 ML IVP PRN (07:24)
[2019-06-26] MEDS ORDERED: diphenhydrAMINE 50 MG/1 ML VIAL IVP PRN (07:24)
[2019-06-26] MEDS ORDERED: Oxytocin 20 Units + LR 20 UNIT/1,000 ML BAG IV SCH ×2 (07:30→20:00)
[2019-06-26 07:44] LABS: Hematocrit [HCT] 36.3 % (37.0-47.0); Hemoglobin [HGB] 12.5 g/dL (12.0-16.0); MEAN CORPUSCULAR HGB CONC 34.4 g/dL (33-37); MEAN CORPUSCULAR VOLUME 91.9 FL (81-99); MEAN PLATELET VOLUME 10.8 FL (7.4-12.2); RED BLOOD COUNT 3.95 10^6/uL (4.20-5.40)
[2019-06-26 07:54] LABS: BLOOD UREA NITROGEN 8 mg/dL (7-22); SERUM ALBUMIN 3.6 g/dL (3.5-4.8); Uric Acid 4.5 mg/dl (2.5-6.2)
[2019-06-26] MEDS: Lactated Ringers-OB Dept 1,000 ML PRIMARY IV SCH ×2 (08:09→20:26)
[2019-06-26] MEDS ORDERED: Misoprostol Tab 100 MCG TAB ONE (08:15)
[2019-06-26] MEDS: Misoprostol Tab 100 MCG TAB VAGINAL ONE ×2 (08:20→12:45)
[2019-06-26] MEDS: ACETAMINOPHEN 500 MG TABLET PO PRN ×2 (11:15→20:24)
[2019-06-27] MEDS: Lactated Ringers-OB Dept 1,000 ML PRIMARY IV SCH ×3 (05:10→16:40)
[2019-06-27] MEDS: ACETAMINOPHEN 500 MG TABLET PO PRN (07:42)
[2019-06-27] MEDS: fentaNYL Inj 100 MCG/2 ML VIAL IV PRN ×2 (15:29→16:01)
[2019-06-27] MEDS ORDERED: LIDOCAINE MPF 2% - 5 ML (20 MG/1 ML) ONE (16:28)
[2019-06-27] MEDS ORDERED: Lactated Ringers 1,000 ML PRIMARY IV ONE (16:39)
[2019-06-27] MEDS ORDERED: GLYCERIN/WITCH HAZEL 1 BOX TOPICAL PRN (19:02)
[2019-06-27] MEDS ORDERED: BENZOCAINE/MENTHOL SPRAY 56 GM BOTTLE TOPICAL PRN (19:02)
[2019-06-27] MEDS ORDERED: LIDOCAINE HCL 2 % 10 ML JELLY URO-JECT TOPICAL PRN (19:02)
[2019-06-27] MEDS ORDERED: ONDANSETRON 4 MG/2 ML VIAL IVP PRN (19:02)
[2019-06-27] MEDS ORDERED: CALCIUM CARBONATE 500 MG (TUMS) CHEWABLE TABLET PO PRN (19:02)
[2019-06-27] MEDS ORDERED: LANOLIN HPA 40 GM TUBE TOPICAL PRN (19:02)
[2019-06-27] MEDS ORDERED: diphenhydrAMINE 50 MG/1 ML VIAL IVP PRN (19:02)
[2019-06-27] MEDS ORDERED: diphenhydrAMINE 25 MG CAPSULE PO PRN (19:02)
[2019-06-27] MEDS ORDERED: Nalbuphine Inj 20 MG/ML Ampule IVP PRN (19:02)
[2019-06-27] MEDS ORDERED: Oxytocin 20 Units + LR 20 UNIT/1,000 ML BAG IV SCH (19:02)
[2019-06-27] MEDS ORDERED: Lidocaine 1% 10 MG/ML - 20 ML VIAL INTRADERM PRN (19:02)
[2019-06-27] MEDS ORDERED: Ondansetron ODT Tab 4 MG TAB PO PRN (19:02)
[2019-06-27] MEDS: ACETAMINOPHEN 325 MG TABLET PO PRN (21:52)
[2019-06-28] MEDS: IBUPROFEN 800 MG TABLET PO PRN ×2 (02:06→10:32)
[2019-06-28 04:41] LABS: Hematocrit [HCT] 33.6 % (37.0-47.0); Hemoglobin [HGB] 11.5 g/dL (12.0-16.0); MEAN CORPUSCULAR HGB CONC 34.2 g/dL (33-37); MEAN CORPUSCULAR VOLUME 92.1 FL (81-99); MEAN PLATELET VOLUME 10.9 FL (7.4-12.2); RED BLOOD COUNT 3.65 10^6/uL (4.20-5.40)
[2019-06-28 04:52] LABS: BLOOD UREA NITROGEN 7 mg/dL (7-22); BUN/CREATININE RATIO 11.66 (6-20); SERUM ALBUMIN 2.9 g/dL (3.5-4.8); Uric Acid 3.9 mg/dl (2.5-6.2)
[2019-06-28] MEDS: ACETAMINOPHEN 325 MG TABLET PO PRN (05:16)
[2019-06-28 08:47] VITALS: RESP 18; TEMP 97.7
[2019-06-28] MEDS ORDERED: Prenatal Multivitamin Tab 1 TAB TAB PO SCH (09:00)
[2019-06-28] MEDS ORDERED: DOCUSATE 100 MG CAPSULE PO SCH (09:00)
[2019-06-28 14:06] VITALS: BP 133/86; O2SAT 99
== END 2019-06-28 19:30 | disposition home or self-care (01) | DRG 807 ==
LOC: OBIP 07:04
PROVIDERS: ADMIT Student in an Organized Health Care Education/Training Program; ATTEND Student in an Organized Health Care Education/Training Program